=== PATIENT | female | born 1985 | race Caucasian/White ===

== ENCOUNTER 2022-01-12 08:50 | Outpatient (CLI) | payer BC, SELFPAY ==
[2022-01-12 09:10] LABS: Basophils Absolute Auto 0.06 K/mm3 (0.00-0.10); Basophils Percent Auto 0.8 % (0.0-1.0); Eosinophils Absolute Auto 0.19 K/mm3 (0.02-0.50); Eosinophils Percent Auto 2.7 % (1.0-6.0); Hematocrit 42.7 % (35.0-49.0); Hemoglobin 14.5 g/dL (12.0-15.0); Immature Granulocyte Absolute 0.03 K/mm3 (0.00-0.00); Immature Granulocyte Percent A 0.4 % (0.0-0.0); Lymphocytes Percent Auto 39.6 % (18.0-42.0); Mean Corpuscular Volume 91.2 fL (78.0-102.0); Mean Platelet Volume 10.2 fl (9.2-11.8); Monocytes Absolute Auto 0.59 K/mm3 (0.10-0.90); Monocytes Percent Auto 8.3 % (2.0-11.0); Neutrophils Absolute Auto 3.4 K/mm3 (1.7-7.2); Neutrophils Percent Auto 48.2 % (50.0-70.0); Platelet Count Result 246 K/mm3 (150-420); Red Blood Count 4.68 M/mm3 (4.20-5.40); Red Cell Distribution Width 12.1 % (11.6-14.4); White Blood Count 7.1 K/mm3 (4.8-10.8)
[2022-01-12 09:25] LABS: Hemoglobin A1C 5.4 % (<5.7)
[2022-01-12 09:52] LABS: Alanine Aminotransferase 27 U/L (14-59); Alkaline Phosphatase 58 U/L (46-116); Anion Gap 7 mmol/L (8-16); Aspartate Amino Transferase 14 U/L (15-37); Bilirubin,Total 0.4 mg/dL (0.00-1.00); Blood Urea Nitrogen 14 mg/dL (7-18); Calcium 8.7 mg/dL (8.5-10.1); Carbon Dioxide 26 mmol/L (21-32); Chloride 104 mmol/L (98-108); Cholesterol 268 mg/dL (0-200); Estimated Glomerular Filt Rate > 60; Folic Acid 9.2 ng/mL (8.6->20); Glucose 90 mg/dL (70-99); HDL Direct 66 mg/dL (40-60); LDL Cholesterol Calculated 174 mg/dL (<130); Osmolality Calculated 284 mOsm/kg (285-295); Potassium 4.2 mmol/L (3.5-5.1); Sodium 137 mmol/L (136-145); Total Protein 7.8 g/dL (6.4-8.2); Triglycerides 140 mg/dL (0-150); Vitamin B12 387 pg/mL (193-986)
[2022-01-12 09:55] LABS: Thyroid Stimulating Hormone Reflex 2.89 u/IU/mL (0.36-3.74)
[2022-01-16 11:57] LABS: Vitamin D 25 Hydroxy 26 ng/mL (30-100)
== END 2022-01-12 08:51 | disposition home or self-care (01) ==
LOC: CHSLAB 08:53
PROVIDERS: PCP Nurse Practitioner Family; Visit Provider Nurse Practitioner Family
DX: Z13.0 Encounter for screening for diseases of the blood and blood-forming organs and certain disorders involving the immune mechanism (principal); Z13.1 Encounter for screening for diabetes mellitus; Z13.29 Encounter for screening for other suspected endocrine disorder; Z13.220 Encounter for screening for lipoid disorders; Z13.9 Encounter for screening, unspecified
CPT/HCPCS: 36415; 80053; 80061; 82306; 82607; 82746; 83036; 84443; 85025